=== PATIENT | female | born 1950 | race Caucasian/White ===

== ENCOUNTER → 2025-06-01 | Outpatient (CLI) | payer MEDICARE, SELFPAY ==
--- NOTE | 2025-06-02 10:56 | HMCIMG ---
EXAMINATION: SOFT TISSUE ULTRASOUND OF THE NECK. CLINICAL HISTORY: Generalized enlarged lymph node. COMPARISON: None. TECHNIQUE: Transverse and longitudinal images were obtained in the neck. FINDINGS: Both submandibular glands appear normal in caliber and homogenous echotexture, the right gland measures 2.9 x 0.9 x 2.4 cm and the left gland measures 3.4 x 1.3 x 2.3 cm. There are no focal lesions or collections. No significantly enlarged lymph nodes. IMPRESSION: No significant abnormality. /Dilan
== END | disposition home or self-care (01) ==
LOC: RAH 11:40
PROVIDERS: ATTEND Physician Assistant Medical
DX: R59.1 Generalized enlarged lymph nodes (principal)
CPT/HCPCS: 76536